=== PATIENT | female | born 1950 | race Caucasian/White ===

== ENCOUNTER → 2021-09-25 11:43 | Outpatient (BNVA) | payer MEDICARE, SELFPAY | PROVIDERS: Visit Provider Nurse Practitioner Family | DX: R42 Dizziness and giddiness (principal); R26.9 Unspecified abnormalities of gait and mobility; R47.1 Dysarthria and anarthria; R13.10 Dysphagia, unspecified; G25.5 Other chorea | CPT/HCPCS: Q3014 ==

== ENCOUNTER 2023-05-22 23:19 | Emergency (ER) | payer MEDICARE, SELFPAY ==
--- NOTE | 2023-05-22 | ECG_ITS ---
Test Reason : FALL Blood Pressure : / mmHG Vent. Rate : 073 BPM Atrial Rate : 073 BPM P-R Int : 216 ms QRS Dur : 130 ms QT Int : 422 ms P-R-T Axes : 027 -45 026 degrees QTc Int : 464 ms Sinus rhythm with 1st degree A-V block Left axis deviation Right bundle branch block Abnormal ECG No previous ECGs available Referred By: Maegan Oconnor Electronically Signed By:HILARIO MILLS
--- NOTE | ~2023-05-22 | CT_ITS ---
EXAMINATION: NONCONTRAST HEAD CT NONCONTRAST CERVICAL SPINE CT INDICATION INFORMATION: Trauma with pain COMPARISON: None TECHNIQUE: Separate noncontrast CT examinations of the head and cervical spine were performed. Coronal head CT images and coronal and sagittal cervical spine images were created at the technologist workstation. DLP: 996 mGy-cm DOSE LOWERING TECHNIQUES: This CT examination was performed using dose optimization techniques as appropriate, variously including the following: - Automated exposure control - Adjustment of mA and/or kV according to patient size (this includes techniques or standardized protocols for targeted exams were dose is matched to indication/reason for exam; i.e. extremities or head) - Use of iterative reconstruction technique FINDINGS: Head: There is no evidence of acute intracranial hemorrhage or territorial infarction. No abnormal mass-effect or midline shift is seen. [place] to white matter differentiation is well preserved. No extra-axial fluid collections are identified. The ventricles are normal in size. There is mild periventricular white matter hypoattenuation consistent with chronic small vessel ischemic disease. Moderate volume loss is noted. There is mild posterior scalp soft tissue swelling. No acute fracture is seen. The mastoid air cells and visualized portions of the paranasal sinuses are well-aerated. Cervical spine: There is anatomic alignment of the vertebral bodies and posterior elements. Vertebral body heights are maintained. There is degenerative change at the atlantodens articulation. Mild multilevel facet arthropathy. There is ankylosis across the C6-C7 vertebral bodies. There are prominent endplate osteophytes throughout most of the cervical spine. Ossification posterior longitudinal ligament is noted in the lower cervical spine resulting in at least moderate central stenosis at C5-C6. No evidence of acute fracture. No prevertebral soft tissue swelling. Visualized portions of the lung apices are unremarkable. There is a right thyroid nodule measuring approximately 2 cm in diameter in the right lobe. Remainder of the gland is heterogeneous. CT/CT cervical spine wo IV con IMPRESSION: HEAD: No acute intracranial findings. Mild posterior scalp soft tissue swelling. CERVICAL SPINE: 1. No acute findings identified. Multilevel degenerative changes as noted above. 2. 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 This could be further assessed with MRI if clinically warranted. 3. Right thyroid nodule measuring approximately 2 cm in diameter. Based on the recommendations of the ACR Incidental Thyroid Findings Committee (JACR 2015 Sep; 12(2):143-50), further evaluation by thyroid ultrasound is recommended for solitary incidental thyroid nodules greater than or equal to 1.5 cm in largest axial dimension in patients age 35 years and older who do not have limited life expectancy or significant morbidities, unless clinically warranted.
[2023-05-22 23:27] VITALS: BP 164/75; PULSE 73; RESP 17; TEMP 36.6; O2SAT 96
[2023-05-22 23:39] VITALS: BP 164/76; PULSE 74; O2SAT 98; BMI 27.5
--- NOTE | 2023-05-22 23:43 | ED.FALL ---
HPI - Fall General Chief Complaint: Fall Stated Complaint: fall, +headstrike, -LOC Time Seen by Provider: 05/22/23 23:25 Source: patient Mode of arrival: EMS Limitations: no limitations History of Present Illness HPI Narrative: 73 yo female with hx of [place] who uses a walker, HTN, afib on eliquis, HTN, HLD, here with c/o tripping on her walker tonight no preceding CP/SOB. Hit her head lives at assisted living - no LOC but on floor x 2 hours. No other injuries reported has headache now. States she had to find a call help anderson ARAUJO complaint: fall Onset (ago): hour(s) (2) Fall from: standing Fall witnessed: no Place fall occurred: home Loss of consciousness: none Prolonged down time: yes and hour(s) (2) Symptoms prior to fall: none Context: tripped/slipped Location of injury: head Severity: moderate Quality: dull and aching Associated symptoms (after fall): headache Related Data Home Medications Medication Instructions Recorded Confirmed amlodipine 10 mg tablet 10 mg PO DAILY 09/25/21 09/25/21 apixaban 5 mg tablet (Eliquis) 5 mg PO BID 09/25/21 09/25/21 deutetrabenazine 6 mg tablet 6 mg PO BID 09/25/21 09/25/21 ([place]) flecainide 50 mg tablet 50 mg PO Q12H 09/25/21 09/25/21 lisinopril 40 mg tablet 40 mg PO DAILY 09/25/21 09/25/21 meclizine 25 mg tablet 25 mg PO TID 09/25/21 09/25/21 metoprolol succinate 25 mg 12.5 mg PO DAILY 09/25/21 09/25/21 tablet,extended release 24 hr simvastatin 40 mg tablet 40 mg PO BEDTIME 09/25/21 09/25/21 Previous Rx's Medication Instructions Recorded risperidone 0.5 mg tablet 0.5 mg PO TID 30 days #90 tabs 09/25/21 clonazepam 0.5 mg tablet 0.5 mg PO BID 30 days #60 tabs 04/17/22 Allergies Allergy/AdvReac Type Severity Reaction Status Date / Time Unable to Assess Allergy Verified 05/22/23 23:34 Review of Systems Review of Systems: Constitutional : No Fever, No Chills, No Fatigue ENT/Mouth : No sore throat, No Rhinorrhea Eyes: No Eye Pain, No Swelling, No Redness Cardiovascular : No Chest Pain, No SOB, No Dyspnea on Exertion Respiratory : No Cough, No Sputum Gastrointestinal : No Nausea, No Vomiting, No Diarrhea, No abdominal Pain Genitourinary : No Dysuria, No Urinary Frequency, No Hematuria, Musculoskeletal : No joint pain, No Myalgias, No Joint Swelling Skin : No Skin Lesions, No rash Neuro : No Weakness, No Numbness, No Dizziness, positive Headache Psych : No Anxiety/Panic, No Depression Heme/Lymph: No Bruising, No Bleeding,No Lymphadenopathy Endocrine : No Polyuria, No Polydipsia All other systems reviewed and are negative [facility] Past Medical History Attestation statement: The following information was validated with the patient. Source: old records reviewed Medical History Dysphagia Dysarthria Gait difficulty Chorea Surgical History History of back surgery H/O: hysterectomy Family History Family History (Updated 09/25/21 @ 10:39 by Ronaldo Keith CCM) Father Heart disease Diabetes Mother Breast cancer Brother Pancreatic cancer Social History Social History Alcohol intake: never Patient Tobacco Use Status: Never used Tobacco Smoked in Last 30 Days: No Use of substances other than those prescribed or required for medical reasons: No Advance Directives: Yes Advance Directives on File: Yes Advance Directives Date on File: 05/23/23 Physical Exam Vital Signs: Vital Signs: Last Vital Signs Temp 97.9 F 05/22/23 23:27 Pulse 73 05/22/23 23:27 Resp 17 05/22/23 23:27 BP 164/75 H 05/22/23 23:27 Pulse Ox 96 05/22/23 23:27 O2 Del Method Room Air 05/22/23 23:27 BMI result Body Mass Index 27.5 Appearance: Alert. Oriented X3. No acute distress. Eyes: Pupils equal, round and reactive to light. ENT: Pharynx normal. atraumatic Neck: Normal inspection. Neck supple. CVS: Normal heart rate and rhythm. Pulses normal. Chest: atraumatic Respiratory: No respiratory distress. Breath sounds normal. Abdomen: Soft and non-tender. Back : atraumatic Skin: Skin warm and dry. Normal skin color. Normal skin turgor. Extremities: No lower extremity edema. No calf ttp Neuro: Oriented X 3. No motor deficit. No sensory deficit. speech garbled at baseline, diffusely weak, abnormal movements of legs at baseline per patient Course Course Course Narrative: no UE weakness to warrant emergent MRI has no neck pain Medical Decision Making Medical Decision Making [facility] Narrative: 73 yo female with hx of [place] who uses a walker, HTN, afib on eliquis, HTN, HLD, here with c/o trip and fall due to her walker she reports hitting her head and ending up on the floor x 2 hours. No LOC no other injuries. She has hx of trip and falls. She is on thinners at this time will obtain basic labs, CT head/cspine, EKG basic labs. She declines need for medications - no back/trunk or ext injury. Differential Diagnosis Differential Diagnoses: The differential diagnosis associated with the presentation includes ICH, rhabdo, sprain, strain, head injury Admission/Observation Consideration of admission/observation: Escalation of care including admission/observation considered at baseline labs stable trauma images negative can be DC home Lab Data [facility] Lab Attestation statement: I reviewed the patient's lab results. 05/22/23 23:43 05/22/23 23:43 Labs: Lab Results 05/22/23 Range/Units 23:43 WBC 5.7 (4.8-10.8) X10*3/uL RBC 5.00 (4.20-5.50) X10*6/uL Hgb 13.6 (12.0-16.0) g/dl Hct 42.3 (37.0-47.0) % MCV 84.6 (80.0-98.0) fL MCH 27.2 (27.0-33.0) pg MCHC 32.2 (31.0-35.0) g/dl RDW 15.0 (11.0-16.0) % Plt Count 157 L (160-400) X10*3/uL MPV 10.5 (9.4-12.3) fL Immature Gran % (Auto) 0.2 (0.0-0.4) % Neut % (Auto) 62.7 (45-73) % Lymph % (Auto) 25.4 (20-40) % [place] % (Auto) 8.7 (2-11) % Eos % (Auto) 2.1 (0-4) % Baso % (Auto) 0.9 (0-2) % Lymph # (Auto) 1.4 (1.2-4.9) X10*3/uL [place] # (Auto) 0.5 (0.1-1.2) X10*3/uL Eos # (Auto) 0.1 (0.0-0.4) X10*3/uL Baso # (Auto) 0.1 (0.0-0.2) X10*3/uL Abs Immat Gran (auto) 0.01 (0.00-0.03) X10*3/uL Absolute Neuts (auto) 3.6 (2.0-8.3) x10*3/uL Absolute Nucleated RBC 0.000 (0.0-0.012) X10*3/uL Nucleated RBC % (auto) 0.0 (0.0-0.2) /100WBC PT 13.5 H (11.1-13.3) SEC INR 1.1 (0.9-1.1) Sodium 143 (135-145) mmol/L Potassium 3.7 (3.3-5.1) mmol/L Chloride 107 (96-108) mmol/L Carbon Dioxide 25 (22-29) mmol/L Anion Gap 15 (12-20) BUN 17 H (9-16) mg/dL Creatinine 0.78 (0.5-1.4) mg/dL Estim Creat Clear Calc 62.6 Estimated GFR > 60 Random Glucose 236 H (60-115) mg/dL Calcium 9.2 (8.4-10.2) mg/dL Magnesium 2.1 (1.6-2.6) mg/dL Total Bilirubin 0.2 (0.0-1.0) mg/dL Direct Bilirubin < 0.2 (0.0-0.5) mg/dL AST 9 (5-31) U/L ALT 8 (0-31) U/L Alkaline Phosphatase 71 (39-117) U/L Total Creatine Kinase 34 (26-140) U/L Troponin I High Sens < 2.7 (<3.5-17.0) ng/L Total Protein 6.0 L (6.5-8.0) g/dL Albumin 3.8 (3.5-5.0) g/dL Independent Interpretation I performed an independent interpretation of an: EKG and CT Scan (no acute trauma) Interpretation: Rate: 73 Rhythm: NSR with 1st degree AVB [place]: left Normal P waves. RBBB ST T wave : inverted T wave V1, nonspecific ST T wave changes V2 qTC: normal prior studies: no acute ischemia The study has been interpreted contemporaneously by me. Radiology Impression Discussion of test interpretation with radiology: I have reviewed the radiologist's reading. Independent Historian Clinical information obtained from an independent historian. History obtained from or confirmed by: EMS External Record Review External record reviewed: Office record Discharge Plan Discharge Clinical Impression: Head injury Qualifiers: Encounter type: initial encounter Qualified Code(s): S09.90XA - Unspecified injury of head, initial encounter Patient Disposition: Home, Self-Care Instructions: Head Injury (ED) Additional Instructions: return for any chest pain, trouble breathing, numbness, weakness, return of falls, severe headaches, confusion, vomiting, severe neck pain or any other concerns. incidental finding of thyroid nodule you can talk to your doctor about outpatient ultrasound it was seen on right thyroid gland Prescriptions: No Action clonazepam 0.5 mg tablet 0.5 mg PO BID 30 Days Qty: 60 5RF amlodipine 10 mg tablet 10 mg PO DAILY [place] 6 mg tablet 6 mg PO BID Eliquis 5 mg tablet 5 mg PO BID flecainide 50 mg tablet 50 mg PO Q12H lisinopril 40 mg tablet 40 mg PO DAILY meclizine 25 mg tablet 25 mg PO TID metoprolol succinate 25 mg tablet extended release 24 hr 12.5 mg PO DAILY simvastatin 40 mg tablet 40 mg PO BEDTIME risperidone 0.5 mg tablet 0.5 mg PO TID 30 Days Qty: 90 3RF
[2023-05-22 23:49] LABS: MANUAL DIFF FLAG NO
[2023-05-22 23:51] LABS: Basophils Absolute Auto 0.1 X10*3/uL (0.0-0.2); Basophils Percent Auto 0.9 % (0-2); Eosinophils Absolute Auto 0.1 X10*3/uL (0.0-0.4); Eosinophils Percent Auto 2.1 % (0-4); Hematocrit 42.3 % (37.0-47.0); Hemoglobin 13.6 g/dl (12.0-16.0); Imm Gran Abs Auto 0.01 X10*3/uL (0.00-0.03); Imm Gran Pct Auto 0.2 % (0.0-0.4); Lymphocytes Absolute Auto 1.4 X10*3/uL (1.2-4.9); Lymphocytes Percent Auto 25.4 % (20-40); Mean Corpuscular HGB Conc 32.2 g/dl (31.0-35.0); Mean Corpuscular Hemoglobin 27.2 pg (27.0-33.0); Mean Corpuscular Volume 84.6 fL (80.0-98.0); Mean Platelet Volume 10.5 fL (9.4-12.3); Monocytes Absolute Auto 0.5 X10*3/uL (0.1-1.2); Monocytes Percent Auto 8.7 % (2-11); Neutrophils Absolute Auto 3.6 x10*3/uL (2.0-8.3); Neutrophils Percent Auto 62.7 % (45-73); Platelet Count 157 X10*3/uL (160-400); White Blood Count 5.7 X10*3/uL (4.8-10.8)
[2023-05-22 23:59] LABS: INTERNATIONAL NORM RATIO 1.1 (0.9-1.1); Prothrombin Time 13.5 SEC (11.1-13.3)
[2023-05-23 00:06] LABS: Alanine Aminotransferase 8 U/L (0-31); Albumin Level 3.8 g/dL (3.5-5.0); Alkaline Phosphatase 71 U/L (39-117); Anion Gap 15 (12-20); Aspartate Amino Transferase 9 U/L (5-31); Bilirubin Direct < 0.2 mg/dL (0.0-0.5); Bilirubin Total 0.2 mg/dL (0.0-1.0); Blood Urea Nitrogen 17 mg/dL (9-16); Calcium 9.2 mg/dL (8.4-10.2); Carbon Dioxide 25 mmol/L (22-29); Chloride 107 mmol/L (96-108); Creatinine Clr Calc Pharmacy 62.6; Estimated Glomerular Filt Rate > 60; Glucose Random 236 mg/dL (60-115); Magnesium 2.1 mg/dL (1.6-2.6); Potassium 3.7 mmol/L (3.3-5.1); Sodium 143 mmol/L (135-145)
[2023-05-23 00:38] LABS: Troponin-I High Sensitivity < 2.7 ng/L (<3.5-17.0)
--- NOTE | 2023-05-23 02:26 | PC.NURSE ---
pt assessed at d/c, denies any pain
--- NOTE | 2023-05-23 02:27 | MHC.EDTECH ---
call out to [facility] at 0150 to book transport for pt back to facility, estimated eta given was 0220
== END 2023-05-23 02:28 | disposition home or self-care (01) ==
PROVIDERS: Emergency Provider Emergency Medicine
DX: S09.90XA Unspecified injury of head, initial encounter (principal); W01.0XXA Fall on same level from slipping, tripping and stumbling without subsequent striking against object, initial encounter; I10 Essential (primary) hypertension; E78.5 Hyperlipidemia, unspecified; I48.91 Unspecified atrial fibrillation; Y93.89 Activity, other specified; Y92.099 Unspecified place in other non-institutional residence as the place of occurrence of the external cause; Y99.9 Unspecified external cause status; Z79.01 Long term (current) use of anticoagulants; Z79.899 Other long term (current) drug therapy
CPT/HCPCS: 36415; 70450; 72125; 80048; 80076; 82550; 83735; 84484; 85025; 85610; 93005; 99284; 99285